=== PATIENT | female | born 1970 | race Caucasian/White ===

== ENCOUNTER → 2022-02-21 13:07 | Outpatient (CLI) | payer OTHER, SELFPAY ==
--- NOTE | ~2022-02-21 | MMUS_ITS ---
EXAMINATION: MM diagnostic matt BI w sheryl, US breast RT limited HISTORY: Palpable right breast mass for 3 months. TECHNIQUE: Additional 3-D tomosynthesis images of the right breast were performed and synthetic 2-D i mages were generated. CAD analysis was submitted and interpreted. High resolution Limited right breas t ultrasound was performed. COMPARISON: 10/24/2018 BREAST PARENCHYMAL COMPOSITION: Breast composed of scattered areas of fibroglandular density FINDINGS: MAMMOGRAPHIC FINDINGS: There is a new large mass centered in the upper outer quadrant of the right breast measuring approxim ately 2.3 cm by mammography. The mass has some spiculated margins along the posterior aspect. There a re satellite nodules posterior medial to the dominant mass. The left breast is stable without evidenc e for malignancy. ULTRASOUND: Limited right breast ultrasound: At 11:00, 6 cm from the nipple there is a large complex partially cy stic mass with antiparallel configuration and irregular margins measuring 4.5 x 4.3 x 3.7 cm. There i s internal vascularity. There is posterior acoustic enhancement. The satellite nodule seen on mammogr aphy are not definitely visualized by ultrasound. IMPRESSION: 1. Large complex right breast mass centered in the upper outer quadrant measuring up to 4.5 cm by ult rasound. Small satellite nodules noted posterior medial to the dominant mass. 2. Ultrasound-guided right breast biopsy recommended. BI-RADS category 5, highly suggestive of malignancy. Reviewed, dictated and finalized at location A. PHONE ANSWERING SERVICE OPERATOR IMPRESSION: 1. Large complex right breast mass centered in the upper outer quadrant measuri ng up to 4.5 cm by ultrasound. Small satellite nodules noted posterior medial t o the dominant mass. 2. Ultrasound-guided right breast biopsy recommended. BI-RADS category 5, highly suggestive of malignancy.
== END ==
PROVIDERS: PCP Internal Medicine; Visit Provider Internal Medicine
DX: R92.8 Other abnormal and inconclusive findings on diagnostic imaging of breast (principal)
CPT/HCPCS: 76642; 77062; 77066; G0279